=== PATIENT | female | born 1965 | race African-American/Black ===

== ENCOUNTER 2018-01-23 05:50 | Emergency (ER) | payer OTHER ==
[~2018-01-23] VITALS: Ht 172.7 cm; Wt 60.3 kg
[~2018-01-23 05:50] MED LIST: METO25TE2 PO
[2018-01-23 05:56] VITALS: BP 139/80
[2018-01-23] MEDS ORDERED: OMEP20TC11 PO (05:58)
--- NOTE | 2018-01-23 06:06 | NUR ---
52Y F BIB FAMILY C/O NON TRAUMATIC NECK PAIN, X 2 DAYS. PT STATES " IT STARTED 2 DAYS AGO, I WOKE UP AND THE NECK PAIN BEGAN." PT DENIES ANY N/V/D, SOB, CP THE AT THE MOMENT. PT DENIES ANY BLURRY VISION OR DUDLEY; PT AAOX4. BREATHING IS UNLABORED AND EVEN. ER MD DR CERON MADE AWARE. PT AMBULATED TO ER BED 4 WITH STEADY GAIT
[2018-01-23] MEDS ORDERED: LORazepam 2 MG/ML VIAL IM ONE (06:10)
--- NOTE | 2018-01-23 06:10 | NUR ---
Patient being evaluated by physician at bedside.
--- NOTE | 2018-01-23 06:13 | NUR ---
PT LEFT FOR XRAY
[2018-01-23] MEDS ORDERED: KETOROLAC 60 MG/2 ML VIAL IM ONE (06:55)
--- NOTE | 2018-01-23 07:08 | NUR ---
Patient discharged with v/s stable. Written and verbal after care instructions given and explained. Patient alert, oriented and verbalized understanding of instructions. Ambulatory with steady gait. All questions addressed prior to discharge. ID band removed. Patient advised to follow up with PMD. Rx of MOTRIN 800MG AND ROBAXIN 500MG given. Patient educated on indication of medication including possible reaction and side effects. Opportunity to ask questions provided and answered.
[2018-01-23 07:09] VITALS: BP 122/64
== END 2018-01-23 07:08 | disposition home or self-care (01) ==
LOC: MED 05:50
DX: M43.6 Torticollis (principal); R03.0 Elevated blood-pressure reading, without diagnosis of hypertension; K21.9 Gastro-esophageal reflux disease without esophagitis
CPT/HCPCS: 72040; 96372; 99284; J1885; J2060

== ENCOUNTER 2019-04-22 18:08 | Emergency (ER) | payer OTHER ==
[~2019-04-22] VITALS: Ht 172.7 cm; Wt 68.7 kg
[~2019-04-22 18:08] MED LIST changes: +OMEP20TC11 PO
[2019-04-22 18:13] VITALS: BP 154/89
--- NOTE | 2019-04-22 18:17 | NUR ---
PT AMBULATED TO BED 12
--- NOTE | 2019-04-22 18:22 | NUR ---
PT C/O HEADACHE 6/10 PRESSURE PAIN ON TOP ON HEAD. DENIES BLURRY VISION, DENIES N/V/D. ALSO REDNESS IN R EYE. TOOK ADVIL WITH NO RELIEF PMH--HEP C . DENIES N/V/D; SKIN IS PINK/WARM/DRY; AAOX4 WITH EVEN AND STEADY GAIT; LUNGS CLEAR BL; HR EVEN AND REGULAR; PT DENIES ANY FEVER, CP, SOB, OR COUGH AT THIS TIME; PATIENT STATES PAIN OF 6/10 AT THIS TIME; VSS; PATIENT POSITIONED FOR COMFORT; HOB ELEVATED; BEDRAILS UP X2; BED DOWN. ER MD MADE AWARE OF PT STATUS.
--- NOTE | 2019-04-22 19:20 | NUR ---
RECEIVED REPORT FROM TASHA WORKMAN. TRANSFER OF CARE AT THIS TIME.
--- NOTE | 2019-04-22 21:30 | NUR ---
Patient appears to be resting comfortably in bed. Vital Signs within normal limits. Respirations even and unlabored. Awaiting MD evaluation.
[2019-04-22] MEDS ORDERED: KETOROLAC 60 MG/2 ML VIAL IM ONE (21:50)
[2019-04-22 22:18] VITALS: BP 125/72
--- NOTE | 2019-04-22 22:18 | NUR ---
Patient discharged with v/s stable. Pt reports zero pain. Written and verbal after care instructions given and explained. Patient alert, oriented and verbalized understanding of instructions. Ambulatory with steady gait. All questions addressed prior to discharge. ID band removed. Patient advised to follow up with PMD. Rx of Naprosyn given. Patient educated on indication of medication including possible reaction and side effects. Opportunity to ask questions provided and answered.
== END 2019-04-22 22:18 | disposition home or self-care (01) ==
LOC: MED 18:08
DX: S05.12XA Contusion of eyeball and orbital tissues, left eye, initial encounter (principal); G44.209 Tension-type headache, unspecified, not intractable; I10 Essential (primary) hypertension; K21.9 Gastro-esophageal reflux disease without esophagitis; Z79.899 Other long term (current) drug therapy; Z86.79 Personal history of other diseases of the circulatory system; X58.XXXA Exposure to other specified factors, initial encounter; Y93.89 Activity, other specified; Y92.89 Other specified places as the place of occurrence of the external cause; Y99.8 Other external cause status
CPT/HCPCS: 96372; 99283; J1885

== ENCOUNTER 2021-04-12 11:38 | Emergency (ER) | payer OTHER ==
[~2021-04-12] VITALS: Ht 172.7 cm; Wt 66.2 kg
[~2021-04-12 11:38] MED LIST changes: +OMEP-277 PO; -OMEP20TC11 PO
[2021-04-12 11:42] VITALS: BP 133/80
[2021-04-12] MEDS ORDERED: KETOROLAC 15 MG/ML VIAL IVP ONE (12:00)
[2021-04-12] MEDS ORDERED: NACL 0.9% 1,000 ML IV ONE (12:20)
[2021-04-12 12:50] LABS: BASOPHILS # (AUTO) 0.1 K/uL (0.00-0.22); BASOPHILS % (AUTO) 0.9 % (0.0-2.0); EOSINOPHILS # (AUTO) 0.2 K/uL (0-0.4); EOSINOPHILS % (AUTO) 2.1 % (0.0-4.0); HEMATOCRIT 38.4 % (36-48); HEMOGLOBIN 12.2 g/dL (12.0-16.0); LYMPHOCYTES # (AUTO) 2.9 K/uL (2.5-16.5); LYMPHOCYTES % (AUTO) 35.7 % (20.5-51.1); MEAN CORPUSCULAR HEMOGLOBIN 23 pg (27-31); MEAN CORPUSCULAR HGB CONC 32 g/dL (33-37); MEAN CORPUSCULAR VOLUME 73.8 fL (80-94); MONOCYTES % (AUTO) 11.9 % (1.7-9.3); NEUTROPHILS # (AUTO) 4.1 K/uL (1.8-7.7); NEUTROPHILS % (AUTO) 49.4 % (42.2-75.2); PLATELET COUNT (AUTO) 229 K/uL (140-450); WHITE BLOOD COUNT (AUTO) 8.2 K/uL (4.8-10.8)
[2021-04-12 13:03] LABS: ALBUMIN 3.7 g/dL (3.4-5.0); ANION GAP 8.7 (8-16); CARBON DIOXIDE 30.3 mmol/L (21-32); TOTAL BILIRUBIN 0.3 mg/dL (0.0-1.0)
[2021-04-12] MEDS ORDERED: cefTRIAXone 1,000 MG VIAL ONE (13:30)
[2021-04-12] MEDS ORDERED: CEPH-588 PO (13:52)
[2021-04-12 13:54] LABS: APPEARANCE,URINE HAZY (CLEAR); BILIRUBIN,URINE NEGATIVE (NEGATIVE); BLOOD, URINE 2+ (NEGATIVE); COLOR,URINE YELLOW (YELLOW); LEUKOCYTE ESTERASE ,URINE 2+ (NEGATIVE); NITRITE, URINE POSITIVE (NEGATIVE); PH,URINE 5.5 (5.0-9.0); UGLUCOSE NEGATIVE (NEGATIVE)
[2021-04-12 14:08] VITALS: BP 133/80
[2021-04-12 14:08] LABS: WBC,URINE 16-25 (MOD) /HPF (0-5)
== END 2021-04-12 14:09 | disposition home or self-care (01) ==
LOC: MED 11:38
DX: N12 Tubulo-interstitial nephritis, not specified as acute or chronic (principal); K21.9 Gastro-esophageal reflux disease without esophagitis; Z98.890 Other specified postprocedural states; Z90.710 Acquired absence of both cervix and uterus; Z79.899 Other long term (current) drug therapy
CPT/HCPCS: 36415; 74176; 80053; 81001; 83690; 85025; 87086; 96361; 96365; 96375; 99284; J0696; J1885; J7030

== ENCOUNTER 2021-08-17 14:56 | Emergency (ER) | payer OTHER ==
[~2021-08-17] VITALS: Ht 172.7 cm; Wt 68.5 kg
[~2021-08-17 14:56] MED LIST changes: +CEPH-588 PO
[2021-08-17 15:10] VITALS: BP 128/78
--- NOTE | 2021-08-17 15:14 | NUR ---
PT SENT TO LOBBY
[2021-08-17] MEDS ORDERED: KETOROLAC 60 MG/2 ML VIAL IM ONE (15:45)
[2021-08-17] MEDS ORDERED: LID5T TP (16:45)
[2021-08-17] MEDS ORDERED: NAPR-54 PO (16:45)
--- NOTE | 2021-08-17 16:45 | NUR ---
56 Y/O FEMALE BIB SELF C/O BILATERAL FLANK PAIN SINCE THURSDAY. PT STATED THAT THIS HAPPENED BEFORE AND IT WAS A UTI. PT DENIES DYSURIA, HEMATURIA, FEVER OR CHILLS. PT DENIES TAKING ANYTHING FOR PAIN. PT A/O X4 WITH EVEN AND UNLABORED RESPIRATIONS. PMH:DENIES NKDA
--- NOTE | 2021-08-17 17:03 | NUR ---
Patient discharged with v/s stable. Written and verbal after care instructions ABOUT MUSCLE STRAIN AND CHEST WALL PAIN given and explained. Patient alert, oriented and verbalized understanding of instructions. Ambulatory with steady gait. All questions addressed prior to discharge. ID band removed. Patient advised to follow up with PMD. Rx of LIDODERM PATCH AND NAPROXEN given. Patient educated on indication of medication including possible reaction and side effects. Opportunity to ask questions provided and answered.
== END 2021-08-17 17:03 | disposition home or self-care (01) ==
LOC: MED 14:56
DX: M54.6 Pain in thoracic spine (principal); M79.18 Myalgia, other site; K21.9 Gastro-esophageal reflux disease without esophagitis; Z98.890 Other specified postprocedural states; Z79.1 Long term (current) use of non-steroidal anti-inflammatories (NSAID); Z79.2 Long term (current) use of antibiotics; Z79.899 Other long term (current) drug therapy
CPT/HCPCS: 81002; 81025; 96372; 99283; J1885